=== PATIENT | female | born 1970 | race Two or more races ===

== ENCOUNTER 2016-05-22 16:08 | Emergency (ER) | payer MEDICAID, OTHER ==
[2016-05-22] MEDS ORDERED: IBUPROFEN 600 MG TABLET ONE (16:49)
[2016-05-22 17:30] LABS: SPECIFIC GRAVITY 1.025 (1.001-1.030); URINE BILIRUBIN NEGATIVE (NEGATIVE); URINE BLOOD 1+ (NEGATIVE); URINE GLUCOSE (UA) NEGATIVE (NEGATIVE); URINE LEUKOCYTE ESTERASE NEGATIVE (NEGATIVE); URINE NITRITE NEGATIVE (NEGATIVE); URINE PROTEIN NEGATIVE (NEGATIVE); URINE UROBILINOGEN 1 mg/dL (0-1 mg/dl)
[2016-05-22 17:40] LABS: HCG,QUALITATIVE URINE NEGATIVE
[2016-05-22 17:41] LABS: URINE APPEARANCE SL CLOUDY; URINE COLOR DARK YELLOW
[2016-05-22 17:42] LABS: URINE EPITHELIAL CELLS 0-4 /hpf; URINE MUCUS 1+; URINE RBC 0-2 /hpf
[2016-05-22 17:43] LABS: URINE BACTERIA 1+
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
== END 2016-05-22 19:05 | disposition home or self-care (01) ==
LOC: ED 16:08
DX: M25.561 Pain in right knee (principal); M79.632 Pain in left forearm; M79.631 Pain in right forearm; M54.2 Cervicalgia; Y09 Assault by unspecified means
CPT/HCPCS: 81025; 87086; 81001; 71020; 73090 ×2; 73564; 72125; 99284; 99283; A9270